=== PATIENT | male | born 1990 | race Caucasian/White ===

== ENCOUNTER → 2017-08-19 14:26 | Outpatient (CLI) | payer OTHER, SELFPAY ==
[2017-08-19 19:00] LABS: Anion Gap 5 (5-15); BUN 16 mg/dL (7-18); BUN/Creat Ratio 13.4 RATIO (10-20); Calcium,Total 9.1 mg/dL (8.5-10.1); Chloride 108 mmol/L (98-107); Cholesterol 168 mg/dL (200); Creatinine, Serum 1.19 mg/dL (0.70-1.30); EST Glomerular Filtration Rate 78 mL/min (>60); Est Glom Filt Rate - Afr Amer 94 mL/min (>60); Glucose 80 mg/dL (74-106); High Density Lipoprotein 32 mg/dL; Potassium 4.3 mmol/L (3.5-5.1); Sodium Level 140 mmol/L (136-145); Triglycerides 117 mg/dL; Very Low Density Lipoprotein 23 mg/dL (5-40)
[2017-08-25 20:07] LABS: Alternaria alternata 8.77 kU/L (Class IV); Aspergillus fumigatus 0.25 kU/L (Class 0/I); Bahia Grass 1.89 kU/L (Class III); Bermuda Grass 0.29 kU/L (Class 0/I); Bluegrass, Kentucky 8.55 kU/L (Class IV); Cat Hair/Dander, Standard 0.14 kU/L (Class 0/I); Cedar, Mountain <0.10 kU/L (Class 0); Cladosporium herbarum 0.53 kU/L (Class I); Cockroach, American <0.10 kU/L (Class 0); D farinae Mite 0.12 kU/L (Class 0/I); D pteronyssinus 0.11 kU/L (Class 0/I); Dog Epithelia <0.10 kU/L (Class 0); Elm, American White 0.17 kU/L (Class 0/I); Hazelnut Tree 0.23 kU/L (Class 0/I); Hickory, White 6.55 kU/L (Class IV); Johnson Grass 1.09 kU/L (Class II); Maple/Box Elder 2.07 kU/L (Class III); Mucor racemosus <0.10 kU/L (Class 0); Mugwort <0.10 kU/L (Class 0); Mulberry, White <0.10 kU/L (Class 0); Oak, White <0.10 kU/L (Class 0); Penicillium chrysogen 0.31 kU/L (Class 0/I); Pigweed, Rough 0.15 kU/L (Class 0/I); Plantain, English 0.13 kU/L (Class 0/I); Ragweed, Short/Common 1.64 kU/L (Class III); Sheep Sorrel(Dock) 0.35 kU/L (Class I); Stemphylium herbarum 1.32 kU/L (Class II); Sweet Gum <0.10 kU/L (Class 0); Sycamore, American 0.14 kU/L (Class 0/I)
[2017-08-26 14:05] LABS: Nettle 0.12 kU/L (Class 0/I)
== END ==
PROVIDERS: Family Provider Family Medicine; PCP Family Medicine; Visit Provider Family Medicine
DX: Z00.00 Encounter for general adult medical examination without abnormal findings (principal); R06.02 Shortness of breath
CPT/HCPCS: 36415; 80048; 80061; 86003

== ENCOUNTER → 2017-08-23 10:00 | Outpatient (CLI) | payer OTHER, SELFPAY ==
--- NOTE | 2017-08-23 11:25 | PFTCOMP ---
COMPLETE PULMONARY FUNCTION TEST INTERPRETATION Brief HPI: Patient is a 26 year old male, currently under the care of Dr. Ortiz, who presents to [facility] for complete pulmonary function tests secondary to diagnosis of dyspnea. Respiratory therapist reports good effort and reproducible results. Interpretation: Forced expiration spirometry shows no large airways obstructive ventilatory defect with an FEV1 of 113% predicted. There is no significant bronchodilator response by ATS criteria. Spirograms are of good quality and plateau normally. The respiratory flow volume loop shows a normal pattern. Lung volumes by body plethysmography show a normal total lung capacity at 6.74 L, 94% predicted. All other lung volumes are within normal limits. Diffusion capacity by carbon monoxide is normal at 84% predicted. The airway resistance is normal. No previous pulmonary function tests were available for review. Impression: These pulmonary function tests are within normal limits. Consider bronchoprovocation study if asthma is a consideration.
== END ==
PROVIDERS: Family Provider Family Medicine; PCP Family Medicine; Visit Provider Family Medicine
DX: R06.02 Shortness of breath (principal)
CPT/HCPCS: 94060; 94726; 94729

== ENCOUNTER → 2017-12-20 12:44 | Outpatient (CLI) | payer OTHER, SELFPAY | PROVIDERS: Family Provider Family Medicine; PCP Family Medicine; Visit Provider Physician Assistant Surgical | DX: J02.9 Acute pharyngitis, unspecified (principal) | CPT/HCPCS: 87081 ==

== ENCOUNTER 2018-04-24 22:07 | Emergency (ER) | payer OTHER, SELFPAY ==
[2018-04-24 22:07] VITALS: BP 164/91; PULSE 137; RESP 16; TEMP 37.2; O2SAT 97; BMI 34.8
[2018-04-24 22:22] VITALS: BP 164/91; PULSE 122; RESP 17; TEMP 37.7; O2SAT 97
[2018-04-24] MEDS: Ipratropium/Albuterol Sulfate 3 ML AMPUL.NEB INHALATION (22:36)
--- NOTE | 2018-04-24 22:39 | RAD_ITS ---
STUDY: X-RAY CHEST REASON FOR EXAM: Male, 27 years old. Cough. TECHNIQUE: Frontal and lateral views of the chest. COMPARISON: None. FINDINGS: The lungs are clear and expanded. There is no demonstrated pleural abnormality. Normal size heart. Normal mediastinum and aissatou. Normal visualized pulmonary arteries. Normal visualized aortic arch and descending thoracic aorta. Normal visualized thoracic spine. Normal visualized ribs, clavicles, and shoulders. There is no demonstrated abnormality of the visualized soft tissue structures of the upper abdomen. RAD/Chest PA and Lateral IMPRESSION: Normal x-ray examination of the chest. Electronically Signed: Sundeep Nye MD at 23:13 EST , Service support ,
--- NOTE | 2018-04-24 23:32 | ED.DCSUM_ITS ---
- ER Visit Summary Date of Service: 04/24/18 Chief Complaint: [Cough] History of Present Illness: The patient is a 27 M [presents to the emergency department with a cough that he has had for the last 4 days. Patient states he has not had a fever until today. Patient coughing up some yellow phlegm at times. He complains of body aches. Patient denies any sore throat or ear pain. He is not aware of any sick contacts. Patient does complain of some burning in his chest with breathing. Patient used his inhaler at home and because of the cough more.] Physical Examination: [HEENT-PERRLA, EOMI. Cranial nerves II through XII grossly intact. TMs clear. Mucous membranes moist. No adenopathy. Cardiovascular-regular rate and rhythm without murmur or ectopy Lungs-good aeration bilaterally. Patient does have some faint expiratory wheezes. No accessory muscle use or retractions. Abdomen-normoactive bowel sounds, soft, nontender, no rebound or rigidity, no peritoneal signs. Extremities-intact ?4, normal range of motion, normal pulses, atraumatic] Test Results: [Chest x-ray obtained was normal. Fluids screen was negative.] Emergency Department Course and Treatment: [Patient treated with DuoNeb aerosol. Patient given a dose of prednisone.] Treatment Plan: [She will be given a prescription for prednisone and Tessalon Perles.] Disposition: [Discharged home in stable condition. Patient advised to return if increasing shortness of breath or condition should worsen anyway.] Impression: [Asthmatic bronchitis] This note was generated with [employer] dictation software. It may contain incorrect words, spelling, and punctuation that were not noted in review of the chart prior to signing ED Disposition - Plan for ED Patient: Chief Complaint: Cold Sx Referrals: Steve Ortiz MD [Primary Care Provider] -
--- NOTE | 2018-04-24 23:32 | ED.DEP ---
ED Disposition - Plan for ED Patient: Chief Complaint: Cold Sx Instructions: ED Bronchitis Asthmatic Prescriptions: Benzonatate [Tessalon Perle] 200 mg PO TID PRN PRN #20 cap PRN Reason: Cough Prednisone [Deltasone] 20 mg PO BID #6 tab Referrals: Steve Ortiz MD [Primary Care Provider] - 3-5 Days
[2018-04-25 00:09] VITALS: BP 129/81; PULSE 110; RESP 18; O2SAT 96
--- NOTE | 2018-04-25 00:11 | ED.RN ---
PATIENT ALREADY TOOK 50 MG OF PREDNISONE AT HOME WITH LEFT OVER DOSES. PREDNISONE 40 MG NOT GIVEN AT THIS TIME. DR. MIJARES NOTIFIED.
== END 2018-04-25 00:13 | disposition home or self-care (01) ==
PROVIDERS: Emergency Provider Emergency Medicine; Family Provider Family Medicine; PCP Family Medicine
DX: J45.909 Unspecified asthma, uncomplicated (principal)
CPT/HCPCS: 71046; 87804; 94640; 99282

== ENCOUNTER 2018-04-26 13:39 | Emergency (ER) | payer OTHER, SELFPAY ==
[2018-04-26] VITALS (7 sets, daily range): BP systolic 125–149; BP diastolic 69–98; PULSE 96–129; RESP 18–24; TEMP 36.7–37.2; O2SAT 94–98; BMI 34.4
--- NOTE | 2018-04-26 13:52 | EKG12_ITS ---
Test Reason : COUGH Blood Pressure : / mmHG Vent. Rate : 108 BPM Atrial Rate : 108 BPM P-R Int : 148 ms QRS Dur : 086 ms QT Int : 330 ms P-R-T Axes : 054 056 031 degrees QTc Int : 442 ms Sinus tachycardia Otherwise normal ECG Confirmed by THANG MORALES, HENRIQUE ([id number]), editorial project manager SELENE BAZAN ([id number]) on 04/29/2018 9:05:58 AM Referred By: TAHIRA Confirmed By:HENRIQUE DESIR MD
[2018-04-26] MEDS: Ipratropium/Albuterol Sulfate 3 ML AMPUL.NEB INHALATION (14:09)
[2018-04-26 14:16] LABS: Absolute Lymphocyte Count 0.85 X10^3/ul (0.83-4.51); Absolute Neutrophil Count 4.3 X10^3/uL (2.0-7.7); Basophil# 0.01 X10^3/uL; Basophil% 0.2 % (0-1); Eosinophil# 0.06 X10^3/uL; Eosinophils% 0.9 % (0-5); Hematocrit 45.9 % (40-54); Hemoglobin 15.5 g/dl (13.0-16.5); Lymphocyte # 0.85 X10^3/ul (4.0); Mean Corp Hgb Conc 33.8 g/gl (32-36); Mean Corpuscular Hgb 26.7 pg (27.0-32.0); Mean Corpuscular Volume 79.1 fL (80-94); Mean Platelet Vol. 10.5 fl (6.2-12.0); Monocyte# 1.37 X10^3/uL; Monocyte% 20.9 % (0-10); Neutrophil # 4.25 X10^3/uL (2.7-7.7); Neutrophil % 64.7 % (47-70); POSITIVE COUNT NO; POSITIVE DIFFERENTIAL NO; POSITIVE MORPHOLOGY NO; Platelet Count 206 K/mm3 (150-450); RBC Distribution Width CV 13.7 % (11.6-14.6); RBC Distribution Width SD 39.7 fl (35.1-43.9); White Blood Count 6.6 K/mm3 (4.4-11.0)
[2018-04-26 14:27] LABS: Anion Gap 12 (5-15); BUN 17 mg/dL (7-18); BUN/Creat Ratio 10.4 RATIO (10-20); Calcium,Total 8.3 mg/dL (8.5-10.1); Chloride 104 mmol/L (98-107); Creatinine, Serum 1.64 mg/dL (0.70-1.30); EST Glomerular Filtration Rate 54 mL/min (>60); Est Glom Filt Rate - Afr Amer 65 mL/min (>60); Estimated Creatinine Clearance 69.86 ml/min; Glucose 115 mg/dL (74-106); Potassium 3.6 mmol/L (3.5-5.1); Sodium Level 138 mmol/L (136-145)
[2018-04-26 14:35] LABS: Lactic Acid 3.2 mmol/L (0.4-2.0)
[2018-04-26] MEDS: 0.9% Normal Saline 1,000 ML 999 ML IV ×2 (14:45→15:52)
--- NOTE | 2018-04-26 14:50 | RAD_ITS ---
STUDY: X-RAY CHEST REASON FOR EXAM: Male, 27 years old. Cough. TECHNIQUE: PA and lateral views of the chest. COMPARISON: 04/24/2018. FINDINGS: The lungs are clear and expanded. There is no demonstrated pleural abnormality. Normal size heart. Normal mediastinum and aissatou. Normal visualized pulmonary arteries. Normal visualized aortic arch and descending thoracic aorta. There is minimal dextroscoliosis which could be positional. Normal visualized ribs, clavicles, and shoulders. There is no demonstrated abnormality of the visualized soft tissue structures of the upper abdomen. RAD/Chest PA and Lateral IMPRESSION: No active pulmonary disease. Electronically Signed: Miguel Angel Benton MD at 15:40 EST Tel , Service support ,
--- NOTE | 2018-04-26 17:12 | ED.DCSUM_ITS ---
- ER Visit Summary Date of Service: 04/26/18 Chief Complaint: [Cough and fever] History of Present Illness: The patient is a 27 M [presents to the emergency department 5-day history of cough and fever. Patient now coughing up thick yellow sputum. Patient was seen in the emergency department several days ago and had a chest x-ray and influenza screen was negative. Patient was treated with the albuterol MDI as well as prednisone. Patient states that he continues to have fever and chills. Patient now coughing up thick yellow sputum. He denies any chest pain other than with cough. Denies recent travel or surgery. Denies sick contacts.] Physical Examination: [HEENT-PERRLA, EOMI. Cranial nerves II through XII grossly intact. TMs clear. Mucous membranes moist. No adenopathy. Cardiovascular-regular rate and rhythm without murmur or ectopy Lungs-clear to auscultation, chest wall stable without crepitus or subcu emphysema Abdomen-normoactive bowel sounds, soft, nontender, no rebound or rigidity, no peritoneal signs. Extremities-intact ?4, normal range of motion, normal pulses, atraumatic] Test Results: [Chest x-ray obtained was normal. CBC with differential showed a white blood cell count of 6.6, hemoglobin 15, hematocrit 46, platelets 206. Chemistries unremarkable. BUN was 17 and creatinine 1.64. Lactate was elevated 3.2. Chest x-ray was normal.] Patient had respiratory panel sent which came back positive for influenza a (H3 subtype) Emergency Department Course and Treatment: [Patient was given 2 L normal saline fluid boluses. Patient felt improved.] Treatment Plan: [Patient advised to continue pushing fluids at home. Advised to control fever with ibuprofen. Patient will not be started on Tamiflu given symptoms have been ongoing for greater than 5 days.] Disposition: [Discharged home in stable condition] Impression: [Influenza] This note was generated with eigital dictation software. It may contain incorrect words, spelling, and punctuation that were not noted in review of the chart prior to signing ED Disposition - Plan for ED Patient: Chief Complaint: Cough Referrals: Steve Ortiz MD [Primary Care Provider] -
--- NOTE | 2018-04-26 17:20 | ED.DEP ---
ED Disposition - Plan for ED Patient: Chief Complaint: Cough Instructions: ED Flu Referrals: Steve Ortiz MD [Primary Care Provider] - 5-7 Days
[2018-04-26 18:08] LABS: Reflex Lactate? Y
== END 2018-04-26 17:39 | disposition home or self-care (01) ==
LOC: ED 15:25
PROVIDERS: Emergency Provider Emergency Medicine; Family Provider Family Medicine; PCP Family Medicine
DX: J09.X2 Influenza due to identified novel influenza A virus with other respiratory manifestations (principal)
CPT/HCPCS: 71046; 80048; 83605; 85025; 87040; 87633; 93005; 94640; 96360; 99285; J7030

== ENCOUNTER → 2020-02-17 | Outpatient (CLI) | payer OTHER, SELFPAY ==
[2018-04-26 13:40] VITALS: BMI 34.4
== END | disposition home or self-care (01) ==
LOC: LABSPEC 16:39
PROVIDERS: PCP Family Medicine; Referring Provider Family Medicine; Visit Provider Family Medicine
DX: Z20.828 Contact with and (suspected) exposure to other viral communicable diseases (principal)
CPT/HCPCS: 87635; U0003

== ENCOUNTER → 2020-06-16 11:23 | Outpatient (CLI) | payer OTHER, SELFPAY ==
[2018-04-26 13:40] VITALS: BMI 34.4
--- NOTE | 2020-06-16 11:31 | RAD_ITS ---
STUDY: X-RAY - LEFT KNEE REASON FOR EXAM: Left knee pain after feeling a pop last . TECHNIQUE: 4 view(s) of the knee. COMPARISON: None. FINDINGS: Normal visualized distal femur. Normal visualized proximal tibia and fibula. Normal proximal tibiofibular articulation. Normal medial femorotibial compartment. Normal lateral femorotibial compartment. Normal patellofemoral articulation. The soft tissue structures are unremarkable. RAD/Knee 4 or More Views IMPRESSION: Normal x-ray examination of the left knee. Electronically Signed: Sridhar Hernandez MD at 12:11 EST Tel , Service support ,
== END ==
PROVIDERS: PCP Family Medicine; Referring Provider Family Medicine; Visit Provider Family Medicine
DX: M25.562 Pain in left knee (principal)
CPT/HCPCS: 73564

== ENCOUNTER 2020-06-23 14:44 | Outpatient (RCR) | payer OTHER, SELFPAY ==
[2018-04-26 13:40] VITALS: BMI 34.4
--- NOTE | 2020-07-04 16:30 | HP.PTEVAL_ITS ---
Patient's Visit Information SHAMA HERNÁNDEZ is a 29 year old M referred to Physical Therapy by Dr. Steve Ortiz MD with a diagnosis of L knee pain. Date of Evaluation: 06/23/20 Physical Therapist: Isaac Silvestre DPT - Visit Plan Frequency: 2x /Week Duration: 4 Weeks Plan: Hard to fully assess his ACL laxity today. He did not have an excessive anterior tibial translation, but did not have a firm end feel either. Mech of inury suggests ACL pathology, no signs of meniscal pathology today. I would suggest that he contiune to ease back into quad, glute and HS strengthening along with restorcing full motion. He is to come back in 1 month if not soorer if needed. We can re assess is prgression at that point in time. - Subjective Pt. is here today for his initial evaluation with diagnosis of L knee pain. Pt. reports hurting his knee a few weeks ago when he was pivoting on his L knee during kicking in [employer]. Pt. reports feeling a pop and having instant pain in his L knee. Pt. has been icing and using compression sleeve. He did have an xray showing no acute fx. Pt. reports swelling has reduced and his is back to work. He does report feeling on instability with standing and walking. He did try to run and had to immediately stop during instability. 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 He is sleeping without issues. Has no been back to [facility] since injury. No N/T or brusing noted. He is hopeful to reduce symptoms in order to get back to all recreational and work activities without limitation. - Pain L knee Pain Intensity (Out of 10): 2 Pain Intensity Range: 1, 4 Comment: Greatest complaint is of instability - Objective POSTURE: Pt. has normal posture in stance, equal wt. shifting. He reports feeling unstable in stance. Normal iliac crest height. PALPATION: Pt. has some minimal joint effusion in L knee. NEURO: normal senation and DTR of BLEs. Pt. is able to rise on heels and toes without issues. ROM: R knee 0-0-132deg. L knee 0-3-121deg. Pt. has pain tightness limiting end ranges of motion. Pt. has normal HS lenght bilaterally. MMT: 5/5 throughout BLEs. Pt. has good quad activation and no lag with kne ext on L side. Lower abdominals 5/5, upper abdominals 5/5. GAIT: normal gait patter noted. DNT running today. - Special Tests L Knee Regina - Meniscus: Negative L Knee Disco Test - Meniscus: Negative L Knee Eliza - ACL: Negative L Knee Anterior Drawer - ACL: Negative L Knee Posterior Drawer - PCL: Negative L Knee Posterior Sag - PCL: Negative L Knee Valgus - MCL: Negative L Knee Varus - LCL: Negative Comments: Pt. did not have a strong end feel with L ACL testing - Goals Goal 1:: LTG: Pt. to be I with HEP for BLE strengthening and knee stability exercises. Goal Time Frame: 4-6 Weeks Goal 2:: STG: Pt. to have reduced feeling of instability with all work related activities. Goal Time Frame: 2-4 Weeks Goal 3:: LTG: pt. to resume all recreatinoal and work activities without limita itons. - Rehabilitation Potential Physical Therapy Diagnosis: Pt. arrives today with L knee pain after sustaning a planted twisting mechanism of injury. Pt. reports feeling a pop when the injury occured. He had some initial joint effussion, but has improved. He has overall good strength as well. He did not have a marked end feel with L ACL testing, negative meniscal testing. I am concerned about a potential ACL tear with him. I would suggest that he work on strengthening and ROM and to see if this help with his feeling of instability. If not improving over the next few weeks he will come back to PT. Rehabilitation Potential: Good - Anticipated Interventions Patient/Client Instruction: Educate patient on: Condition, Plan of Care, Risk Factors, Benefits of Fitness Program For the Purpose of:: To improve self management, To prevent re-injury, To improve ability to perform tasks related to life management, To improve tolerance to ADL's Therapeutic Exercise to Include: Strength training, Power training, Postural training, Flexibilty training, Gait and locomotor training, Passive ROM, Active ROM For the Purpose of:: To decrease pain, To decrease swelling/inflammation, To increase ROM, To improve nutrient delivery to tissue, To increase oxygenation perfusion, To improve muscle performance and motor function, To improve ability to perform ADL's, To increase tolerance to activity/condition/position, To imp rove gait and locomotor functions, To improve health of tissue, To decrease soft tissue restriction Thank you for the opportunity to evaluate your patient. For Medicare and Medicare HMO plans, please review the plan of care and approve it. It will need to be FAXED BACK to us at [phone] for Medicare purposes. For Medicare only, by signing this I certify the plan of care. Please let me know if there are questions or concerns regarding this plan of care. Physician Signature: Date:
--- NOTE | 2020-09-28 12:29 | HP.PT.NRP ---
SHAMA HERNÁNDEZ was seen in my office for initial evaluation on 06/23/20. The following Plan of Care was established for this patient: Initial Frequency: 2x /Week Initial Duration: 4 Weeks Patient/Client Instruction: Educate patient on: Condition, Plan of Care, Risk Factors, Benefits of Fitness Program For the Purpose of:: To improve self management, To prevent re-injury, To improve ability to perform tasks related to life management, To improve tolerance to ADL's Therapeutic Exercise to Include: Strength training, Power training, Postural training, Flexibilty training, Gait and locomotor training, Passive ROM, Active ROM For the Purpose of:: To decrease pain, To decrease swelling/inflammation, To increase ROM, To improve nutrient delivery to tissue, To increase oxygenation perfusion, To improve muscle performance and motor function, To improve ability to perform ADL's, To increase tolerance to activity/condition/position, To improve gait and locomotor functions, To improve health of tissue, To decrease soft tissue restriction This patient was last seen in our office 06/23/20. Pertinent comments regarding their Physical therapy will appear below: Pt. was seen in PT for his L knee injury that suggested possible ACL pathology. I gave him some exercise to work on quad/hip/glute strengthening and ROM. He was to follow back up with PT if needed. He has not been seen in ~3 months and will be DC from PT at this point in time. At this point I will be discontinuing this patient from physical therapy. I would be happy to see this patient again in the future if found appropriate by the physician. Thank you! Isaac Silvestre DPT
== END 2020-06-23 19:00 | disposition home or self-care (01) ==
LOC: PT 14:44
PROVIDERS: PCP Family Medicine; Referring Provider Family Medicine; Visit Provider Family Medicine
DX: M25.562 Pain in left knee (principal)
CPT/HCPCS: 97161

== ENCOUNTER 2021-09-19 10:00 | Outpatient (RCR) | payer OTHER, SELFPAY ==
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
--- NOTE | 2021-05-29 13:44 | HP.PTREVAL ---
LORRAINE ADAMS, It has been my pleasure to treat SHAMA HERNÁNDEZ over the last 12 visits for L ACL tear...L ACL repair and meniscectomy 04/06/21. Please see the progress note below for an update on the physical therapy plan of care! Subjective: To doctor in June 22. ROM good and no pain lately. No brace or AD needed.No real precautions. Objective/Function: 0-130 AROM B knees, synmetrical, R knee hyperextends slowly. Walking well without gait deviations, Steps reciprocally without rail without pain. 0 ext lag with SLR. Doing well and needs to build strength Plan Plan: 3x/week for 3-6 weeks. Strengthening L LE, LE trunk and functional. Work to I in gyma nd funcitonal strength as patient is a member here, progress interval CV, leg strength adn functional. ice as needed. Balance/Gait/Functional tests - Balance/Special Test Scores Lower Extremity Functional Score: 52 Goals Goal 1:: ST: 0-120 aROM without pain and SLR without lag Goal Time Frame: 4-6 Weeks Goal Progress: Goal Met Goal 2:: Walk without gait deviations as allowed by doctor Goal Time Frame: 4-6 Weeks Goal Progress: Goal Met Goal 3:: Steps reciprocally without rail Goal Time Frame: 6-8 Weeks Goal Progress: Goal Met Goal 4:: LT goals: Easily on and off floor and playing with kids. Goal Time Frame: 8-12 Weeks Goal 5:: Plan to return to work full duty Goal Time Frame: 12-16 Weeks Goal 6:: LEFS 80/80 Goal Time Frame: 5 months Anticipated Interventions Patient/Client Instruction: Educate patient on: Condition, Plan of Care For the Purpose of:: To decrease pain, To decrease swelling/inflammation, To increase ROM, To improve muscle performance and motor function, To increase tolerance to activity/condition/position Therapeutic Exercise to Include: Strength training, Balance training, Body mechanics, Postural training, Gait and locomotor training, Passive ROM, Active ROM For the Purpose of:: To decrease pain, To increase ROM, To improve muscle performance and motor function, To increase tolerance to activity/condition/position, To improve ability of physical actions for home/community/work/leisure, To improve gait and locomotor functions Manual Therapy Techniques to Include: Scar massage, Mobilization, Passive ROM For the Purpose of:: To increase ROM Functional electric stimulation: Yes - quad Cryotherapy (ice pack, ice massage): Yes For the Purpose of:: To decrease swelling/inflammation, To improve muscle performance and motor function Please do not hesitate to contact me at [phone] by phone or if you have questions or concerns regarding this new plan of care! Sincerely, Jasson Tran, DPT, OCS, CSCS
--- NOTE | 2021-06-16 13:26 | HP.PTREVAL_ITS ---
LORRAINE ADAMS, It has been my pleasure to treat SHAMA HERNÁNDEZ over the last 18 visits for L ACL tear - repair and meniscectomy 04/06/21. Please see the progress note below for an update on the physical therapy plan of care! Subjective: No pain or problems. Some tightness intermittently anteriorly. Sleeping well and life is mostly normal outisde of work and athletic things. Pt is doing gym workout 2x/week in addition to therapy Objective/Function: Full symmetrical AROM, L at 0 ext adn R hyperextends. Quad still tight B and emphasized stretching of this daily at home. Walks normal, stairs reciprocal normal without rail. Challenged by workout in therapy with shaking weakness on dips and split squat. Overall progressing nicely. 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 Appropriate to cotninue PT to work toward this. Plan Plan: Pt to work 2x/week I on gym program and we can add exercises to this from his funcitonal strength as independence allows. Will see 3x/week in therapy to continue funcitonal strength progression of core and LE. In mid June, if doing well, can start some gentle painfree jogging and initial laateral movements/g entle plyometrics and then progress slowly to tolerance. Balance/Gait/Functional tests - Balance/Special Test Scores Lower Extremity Functional Score: 59 Goals Goal 1:: ST: 0-120 aROM without pain and SLR without lag Goal Time Frame: 4-6 Weeks Goal Progress: Goal Met Goal 2:: Walk without gait deviations as allowed by doctor Goal Time Frame: 4-6 Weeks Goal Progress: Goal Met Goal 3:: Steps reciprocally without rail Goal Time Frame: 6-8 Weeks Goal Progress: Goal Met Goal 4:: LT goals: Easily on and off floor and playing with kids. Goal Time Frame: 8-12 Weeks Goal Progress: Progressing Goal 5:: Plan to return to work full duty Goal Time Frame: 12-16 Weeks Goal Progress: Progressing Goal 6:: LEFS 80/80 Goal Time Frame: 5 months Anticipated Interventions Patient/Client Instruction: Educate patient on: Condition, Plan of Care For the Purpose of:: To decrease pain, To decrease swelling/inflammation, To increase ROM, To improve muscle performance and motor function, To increase tolerance to activity/condition/position Therapeutic Exercise to Include: Strength training, Balance training, Body mechanics, Postural training, Gait and locomotor training, Passive ROM, Active ROM For the Purpose of:: To decrease pain, To increase ROM, To improve muscle performance and motor function, To increase tolerance to activity/condition/position, To improve ability of physical actions for home/community/work/leisure, To improve gait and locomotor functions Manual Therapy Techniques to Include: Scar massage, Mobilization, Passive ROM For the Purpose of:: To increase ROM Functional electric stimulation: Yes - quad Cryotherapy (ice pack, ice massage): Yes For the Purpose of:: To decrease swelling/inflammation, To improve muscle performance and motor function Please do not hesitate to contact me at [phone] by phone or if you have questions or concerns regarding this new plan of care! Sincerely, Jasson Tran, DPT, OCS, CSCS
--- NOTE | 2021-07-19 15:03 | HP.PTREVAL ---
LORRAINE ADAMS, It has been my pleasure to treat SHAMA HERNÁNDEZ over the last 28 visits for L ACL tear - repair and meniscectomy 04/06/21. Please see the progress note below for an update on the physical therapy plan of care! Subjective: No pain and doing well. Joied [employer] and another gym and working strength 3x/week. Objective/Function: 80# L quad and 98 R quadHS 70#R and 65# L. 0-120 AROM B no lag with SLR. Walk and steps normal even jogging and skipping a few. TM job looks great without deviations. SLH L very awkward compared to R but able. Side shuffle jelani karioka are slow but able. Dounble leg hop and squat keeps weight shifted R at lower portion. overall doing very well. Appropriate for ocnitnued PT based on difficult job duties. Plan Plan: 1-2x/week for 4 weeks, pt to cotninue strength progression himself and see therapy for progression of plyo, single leg hop9to bring brace) and agility. Pt to do exercises on own and progressed in PT. Balance/Gait/Functional tests - Balance/Special Test Scores Lower Extremity Functional Score: 72 Goals Goal 1:: ST: 0-120 aROM without pain and SLR without lag Goal Time Frame: 4-6 Weeks Goal Progress: Goal Met Goal 2:: Walk without gait deviations as allowed by doctor Goal Time Frame: 4-6 Weeks Goal Progress: Goal Met Goal 3:: Steps reciprocally without rail Goal Time Frame: 6-8 Weeks Goal Progress: Goal Met Goal 4:: LT goals: Easily on and off floor and playing with kids. Goal Time Frame: 8-12 Weeks Goal Progress: Goal Met Goal 5:: Plan to return to work full duty Goal Time Frame: 12-16 Weeks Goal Progress: Progressing Goal 6:: LEFS 80/80 Goal Time Frame: 5 months Goal Progress: Progressing Anticipated Interventions Patient/Client Instruction: Educate patient on: Condition, Plan of Care For the Purpose of:: To decrease pain, To decrease swelling/inflammation, To increase ROM, To improve muscle performance and motor function, To increase tolerance to activity/condition/position Therapeutic Exercise to Include: Strength training, Balance training, Body mechanics, Postural training, Gait and locomotor training, Passive ROM, Active ROM For the Purpose of:: To decrease pain, To increase ROM, To improve muscle performance and motor function, To increase tolerance to activity/condition/position, To improve ability of physical actions for home/community/work/leisure, To improve gait and locomotor functions Manual Therapy Techniques to Include: Scar massage, Mobilization, Passive ROM For the Purpose of:: To increase ROM Functional electric stimulation: Yes - quad Cryotherapy (ice pack, ice massage): Yes For the Purpose of:: To decrease swelling/inflammation, To improve muscle performance and motor function Please do not hesitate to contact me at [phone] by phone or if you have questions or concerns regarding this new plan of care! Sincerely, Jasson Tran, DPT, OCS, CSCS
--- NOTE | 2021-09-19 10:41 | HP.PTDCSUM_ITS ---
It has been my pleasure to treat SHAMA HERNÁNDEZ referred by LORRAINE ADAMS, with the diagnosis of L ACL tear - repair and meniscectomy 04/06/21 for a total of 37 visit(s). Discharge Date: 09/19/21 Please see the following information for a summary of their discharge status. Subjective: Pt doing well. Working full duty without pain. Sleeping well. No deficits in function at this point. Gets into [employer] to workout as member whenever he can. L knee pain Pain Intensity (Out of 10): 0 % Improvement: 85 Objective/Function: Jogging TM without gait deficits and without pain today. Walks I without gait deviations. Activitiwes at home are normal. Golfing is going well. Has not gone back to [employer] due to time, not knee. \0-130 aROM and SLR without lag on L. 63# HS strength B. quad is L 72 and R 80#. SLH easily B. sideshuffle and cutting at 100% without problems or compensation or pain. Overall doing well and ready for d/c Goal 1:: ST: 0-120 aROM without pain and SLR without lag Goal Progress: Goal Met Goal 2:: Walk without gait deviations as allowed by doctor Goal Progress: Goal Met Goal 3:: Steps reciprocally without rail Goal Progress: Goal Met Goal 4:: LT goals: Easily on and off floor and playing with kids. Goal Progress: Goal Met Goal 5:: Plan to return to work full duty Goal Progress: Goal Met Goal 6:: LEFS 80/80 Goal Progress: Goal Met Plan: d/c If there are questions or concerns regarding this patient's physical therapy, please feel free to call me at [phone]. Thank you for the referral of this patient. Sincerely, Jasson Tran, DPT, OCS, CSCS Balance/Gait/Functional tests - Balance/Special Test Scores Lower Extremity Functional Score: 80
== END 2021-09-19 12:22 | disposition home or self-care (01) ==
LOC: PT 10:00
PROVIDERS: PCP Family Medicine
DX: S83.512D Sprain of anterior cruciate ligament of left knee, subsequent encounter (principal)
CPT/HCPCS: 97014; 97110; 97140; 97161; 97164; 97530; G0283

== ENCOUNTER → 2021-12-12 | Outpatient (CLI) | payer OTHER, SELFPAY | END | disposition home or self-care (01) | PROVIDERS: PCP Family Medicine; Visit Provider Family Medicine | DX: U07.1 COVID-19 (principal) | CPT/HCPCS: 87635; U0003; U0005 ==

== ENCOUNTER → 2022-02-16 | Outpatient (CLI) | payer OTHER, SELFPAY ==
[2022-02-16 15:25] LABS: Anion Gap 6 (5-15); BUN 15 mg/dL (7-18); BUN/Creat Ratio 14.4 RATIO (10-20); Calcium,Total 8.8 mg/dL (8.5-10.1); Chloride 110 mmol/L (98-107); Cholesterol 183 mg/dL (200); Creatinine, Serum 1.04 mg/dL (0.70-1.30); EST Glomerular Filtration Rate 88 mL/min (>60); Est Glom Filt Rate - Afr Amer 107 mL/min (>60); Glucose 100 mg/dL (74-106); High Density Lipoprotein 33 mg/dL; Potassium 4.2 mmol/L (3.5-5.1); Sodium Level 141 mmol/L (136-145); Triglycerides 221 mg/dL; Very Low Density Lipoprotein 44 mg/dL (5-40)
== END | disposition home or self-care (01) ==
LOC: MFPLAB 11:52
PROVIDERS: PCP Family Medicine; Referring Provider Family Medicine; Visit Provider Family Medicine
DX: Z00.00 Encounter for general adult medical examination without abnormal findings (principal)
CPT/HCPCS: 36415; 80048; 80061

== ENCOUNTER → 2022-03-20 | Outpatient (CLI) | payer OTHER, SELFPAY | END | disposition home or self-care (01) | LOC: SL 20:39 | PROVIDERS: PCP Family Medicine; Visit Provider Nurse Practitioner Acute Care | DX: G47.10 Hypersomnia, unspecified (principal) | CPT/HCPCS: 95811 ==

== ENCOUNTER 2024-04-30 23:51 | Emergency (ER) | payer OTHER, SELFPAY ==
[2024-04-30 23:52] VITALS: BP 158/105; PULSE 113; RESP 15; TEMP 36.6; O2SAT 96; BMI 37.9
[2024-05-01] MEDS: 0.9% Normal Saline (1000mL) 1,000 ML 999 ML IV ×2 (00:19→00:54)
[2024-05-01] MEDS: Ondansetron 4 MG/2 ML Vial IV (00:19)
[2024-05-01] MEDS: Dicyclomine 20 MG/2 ML Vial IM (00:20)
[2024-05-01 00:24] LABS: Absolute Lymphocyte Count 1.16 X10^3/uL (0.83-4.51); Absolute Neutrophil Count 6.5 X10^3/uL (2.0-7.7); Basophil# 0.05 X10^3/uL; Basophil% 0.6 % (0-1); Eosinophil# 0.14 X10^3/uL; Eosinophils% 1.6 % (0-5); Hemoglobin 16.2 g/dL (13.0-16.5); Lymphocyte # 1.16 X10^3/ul (0.83-4.51); Lymphocyte % 12.9 % (19-41); Mean Corp Hgb Conc 33.1 g/dL (32-36); Mean Corpuscular Hgb 26.2 pg (27.0-32.0); Mean Corpuscular Volume 79.2 fL (80-94); Mean Platelet Vol. 9.8 fl (6.2-12.0); Monocyte# 1.06 X10^3/uL; Monocyte% 11.8 % (0-10); NRBC Flagged by Analyzer 0 % (0-5); Neutrophil % 72.4 % (47-70); Platelet Count 211 K/mm3 (150-450); RBC Distribution Width CV 13.3 % (11.6-14.6); RBC Distribution Width SD 37.9 fl (35.1-43.9); Red Blood Count 6.19 M/mm3 (4.6-6.2)
[2024-05-01 00:40] LABS: Anion Gap 6 (5-15); BUN 18 mg/dL (7-18); BUN/Creat Ratio 12.5 RATIO (10-20); Calcium,Total 8.5 mg/dL (8.5-10.1); Chloride 103 mmol/L (98-107); Creatinine, Serum 1.44 mg/dL (0.70-1.30); EST Glomerular Filtration Rate 60 mL/min (>60); Est Glom Filt Rate - Afr Amer 72 mL/min (>60); Estimated Creatinine Clearance 94.74 ml/min; Glucose 99 mg/dL (74-106); Magnesium 2.1 mg/dL (1.6-2.6); Sodium Level 133 mmol/L (136-145)
--- NOTE | 2024-05-01 01:42 | EDS_ITS ---
HPI History of Present Illness Chief Complaint: Nausea/Vomiting/Diarrhea Informant: patient and spouse/S.O. Narrative Narrative: Patient is a 33-year-old male with no significant past medical history. He states that roughly 2 to 3 days ago he began to feel fatigued and generalized muscle ache. He then spiked a fever up to 103 and then began with bouts of nausea vomiting and diarrhea. He denies any known sick contacts at home or work. He denies any history of intestinal disorder. He states that he has been trying to hydrate at home but he keeps from having recurrent bouts of vomiting and diarrhea and therefore with the worsening symptoms and the inability to keep food or fluid down he presents for evaluation [facility] Medical History Seasonal allergies Knee pain Severe headache Shoulder pain SOB (shortness of breath) Home Medications ?Medication ?Instructions ?Recorded ?Last Taken ?Type sertraline 150 mg capsule 150 mg PO DAILY 10/31/21 Unknown History dicyclomine 20 mg tablet 20 mg PO 4X/DAY PRN Abdominal 05/01/24 Unknown Rx bloating/spasm #28 tabs ondansetron 4 mg disintegrating 4 mg PO TID PRN nausea and 05/01/24 Unknown Rx tablet vomiting #21 tabs Allergy/AdvReac Type Severity Reaction Status Date / Time No Known Allergies Allergy Verified 04/30/24 23:52 Family History Father CVA (cerebral vascular accident) Grandfather Brain aneurysm Surgical History History of repair of ACL History of shoulder surgery Social History Smoking Status: Never smoker ROS ROS ED Constitutional Constitutional ED: Reports chills and fever(s) Eyes Eyes: Denies change in vision ENT ENT ED: Denies sore throat Cardiovascular Cardiovascular: Denies chest pain Respiratory/Chest Respiratory/Chest: Denies cough or dyspnea Gastrointestinal Gastrointestinal: Reports diarrhea, nausea and vomiting; Denies abdominal pain Genitourinary Genitourinary ED: Denies dysuria Musculoskeletal Musculoskeletal: Reports myalgias Integumentary Denies rash Neurologic Neurologic: Denies headache(s) Hematologic/Lymphatic Hematologic/Lymphatic: Denies easy bleeding or easy bruising EXAM Physical Exam Const Vital Signs: 04/30/24 23:52 05/01/24 01:52 05/01/24 02:13 Temperature 97.9 F 98 F Temperature Source Oral Pulse Rate 113 H 98 98 Respiratory Rate 15 18 18 Blood Pressure 158/105 H 144/92 H 144/92 H Blood Pressure Mean 122 109 109 Pulse Ox 96 98 98 Oxygen Delivery Method Room Air Room Air Positive well nourished and well developed General Appearance ED: well developed; Negative for pallor HEENT Reports dry mucous membranes HEENT Narrative: No tongue or lip swelling no oral lesions no airway edema or compromise No secondary findings in the posterior pharynx to suggest infection Mucous membranes are dry and tacky consistent with dehydration Mouth ED: Yes dry mucous membranes Mouth: dry mucous membranes Eyes PERRL and EOMs intact bilaterally General Eye ED: Negative for scleral icterus Neck supple Resp normal respiratory effort and clear to auscultation bilaterally Cardio regular rhythm Rate: tachycardic and other Other Details: Tachycardic rate with regular rhythm No murmurs rubs or gallop Radial and carotid pulses are equal and symmetric GI non-tender, non-distended and no masses GI Narrative: Abdomen is soft nontender and nondistended with hyperactive bowel sounds. No voluntary guarding or rigidity or pulsatile mass. Auscultation: hyperactive bowel sounds Palpation: soft Extremity normal to inspection Neuro oriented x3, CN's II-XII intact bilaterally and no sensory deficits noted Sensorium / Orientation: alert Motor Exam: strength 5/5 throughout Psych mental status grossly normal Skin no rashes or lesions noted and No skin turgor normal Skin Narrative: Skin turgor is slightly increased consistent with dehydration General Skin Exam: Negative for jaundice or pallor MDM MDM MDM Narrative Medical decision making narrative: Patient arrived to the ER afebrile but tachycardic. History and exam is consistent with a viral stomach infection such as norovirus versus rotavirus. There is concern for potential COVID versus influenza versus RSV and with his physical exam showing dehydration there is concern for acute kidney injury or electrolyte abnormality. Therefore basic blood work was obtained. This did show mild dehydration with elevation to his creatinine from baseline. Potassium was also down at 3.0 but he does not have any neurologic findings and therefore there is no need for emergent replacement. Viral swab was negative. After 2 L of fluid Bentyl and Zofran he reported feeling better and he was given an oral challenge. He was able to tolerate the oral challenge without further bouts of vomiting and also did not have diarrhea while in the ER. Therefore at this time with stabilization of vitals improving symptoms and no signs of severe electrolyte abnormality or acute kidney injury he is safe for discharge with symptomatic care History & Record Review Discussion w/independent historian: Patient and Significant other Lab Data Attestation: I reviewed the patient's lab results. Labs: Laboratory Results - last 24 hr 05/01/24 00:01 WBC 9.0 RBC 6.19 Hgb 16.2 Hct 49.0 MCV 79.2 L MCH 26.2 L MCHC 33.1 RDW Std Deviation 37.9 RDW Coeff of Jeny 13.3 Plt Count 211 MPV 9.8 Immature Gran % (Auto) 0.700 Neut % (Auto) 72.4 H Lymph % (Auto) 12.9 L Frio % (Auto) 11.8 H Eos % (Auto) 1.6 Baso % (Auto) 0.6 Absolute Neuts (auto) 6.5 Absolute Lymphs (auto) 1.16 Nucleated RBC % 0 Sodium 133 L Potassium 3.0 L Chloride 103 Carbon Dioxide 24.0 Anion Gap 6 BUN 18 Creatinine 1.44 H Estim Creat Clear Calc 94.74 Est GFR (MDRD) Af Amer 72 Est GFR (MDRD) Non-Af 60 BUN/Creatinine Ratio 12.5 Glucose 99 Calcium 8.5 Magnesium 2.1 Discharge Plan Triage Chief Complaint: Nausea/Vomiting/Diarrhea ED Provider: Michael Park Dx/Rx/DC Orders Clinical Impression: Nausea vomiting and diarrhea, Dehydration, Hypokalemia Instructions: ED Dehydration (Adult), ED Gastroenteritis, Viral (Adult) Prescriptions: New ondansetron 4 mg tablet,disintegrating 4 mg PO TID PRN (Reason: nausea and vomiting) Qty: 21 2RF dicyclomine 20 mg tablet 20 mg PO 4X/DAY PRN (Reason: Abdominal bloating/spasm) Qty: 28 0RF No Action sertraline 150 mg capsule 150 mg PO DAILY Primary Care Provider: Steve Ortiz Referrals: Steve Ortiz MD [Primary Care Provider] - Print Language: Austrian Disposition Disposition: Home, Self Care Discharge Date/Time: 05/01/24 02:14
[2024-05-01 01:52] VITALS: BP 144/92; PULSE 98; RESP 18; O2SAT 98
[2024-05-01 02:13] VITALS: BP 144/92; PULSE 98; RESP 18; TEMP 36.6; O2SAT 98
== END 2024-05-01 02:14 | disposition home or self-care (01) ==
PROVIDERS: Emergency Provider Emergency Medicine; PCP Family Medicine; Visit Provider Emergency Medicine
DX: R11.2 Nausea with vomiting, unspecified (principal); R19.7 Diarrhea, unspecified; E86.0 Dehydration; E87.6 Hypokalemia; R50.9 Fever, unspecified
CPT/HCPCS: 80048; 83735; 85025; 87631; 96361; 96372; 96374; 96376; 99282; A4216; J2405